=== PATIENT | female | born 1985 | race Caucasian/White ===

== ENCOUNTER 2018-11-08 07:58 | Observation (INO) | payer MEDICAID ==
--- NOTE | 2018-11-08 08:30 | PDGENHP ---
History and Physical History and Physical: Pt is a 33 yo who presents to L&D at 28 weeks after fall on the ice this morning. She reports landing on her side and belly. She denies hitting her head. She reports good movement since the fall and denies any LOF or vaginal bleeding. She transferred care to our office at 25 weeks. Her is complicated by hx of hypothyroidism FHT reassuring at this time. Plan NST and Kleihar test. Plan d/c home and f/u in office as scheduled.
== END 2018-11-08 11:34 | disposition home or self-care (01) ==
LOC: FLD 07:58
PROVIDERS: ADMIT Obstetrics & Gynecology; ATTEND Obstetrics & Gynecology
DX: Z04.3 Encounter for examination and observation following other accident (principal); Z3A.28 28 weeks gestation of pregnancy
CPT/HCPCS: 59025; G0378